=== PATIENT | female | born 1965 | race Caucasian/White ===

== ENCOUNTER → 2018-05-03 | Outpatient (CLI) | payer BC ==
--- NOTE | 2018-05-03 12:12 | MR ---
EXAMINATION TYPE: MR knee RT wo con DATE OF EXAM: 05/03/2018 COMPARISON: None HISTORY: Pain in right knee TECHNIQUE: Multiplanar, multisequence images of the knee is performed without IV contrast. FINDINGS: MEDIAL MENISCUS: Radial tear posterior horn medial meniscus. Anterior horn is intact. LATERAL MENISCUS: Anterior and posterior horns are intact without tear. CRUCIATE LIGAMENTS: The anterior and posterior cruciate ligaments are intact and unremarkable. COLLATERAL LIGAMENTS: The medial collateral ligament and lateral collateral ligament complex are inta ct and unremarkable. EXTENSOR MECHANISM: Visualized quadriceps and patellar tendons are intact. EFFUSION: No significant suprapatellar joint effusion. POPLITEAL CYST: No popliteal/swanson cyst. TRICOMPARTMENT SPACES: Mild narrowing medial tibiofemoral joint space. Moderate narrowing patellofemo ral joint space with cystic changes noted of the patella compatible with chondromalacia patella. BONE MARROW SIGNAL: No focal abnormal marrow signal is appreciated. OTHER: No additional significant abnormality is appreciated. IMPRESSION: 1. Radial tear posterior horn medial meniscus. 2. Changes of osteoarthritis.
== END | disposition home or self-care (01) ==
LOC: RADMRIMAIN 11:09
PROVIDERS: ATTEND Orthopaedic Surgery
DX: S83.241A Other tear of medial meniscus, current injury, right knee, initial encounter (principal); M17.11 Unilateral primary osteoarthritis, right knee

== ENCOUNTER → 2018-05-07 | Outpatient (CLI) | payer BC ==
[2018-05-07 12:35] LABS: Basophils # (A) 0.1 k/uL (0-0.2); Basophils % (A) 1 %; Eosinophils # (A) 0.2 k/uL (0-0.7); Eosinophils % (A) 3 %; HCT 40.2 % (34.0-46.0); HGB 13.5 gm/dL (11.4-16.0); Lymphocytes # (A) 1.3 k/uL (1.0-4.8); Lymphocytes % (A) 20 %; MCH 27.6 pg (25.0-35.0); MCHC 33.5 g/dL (31.0-37.0); MCV 82.5 fL (80.0-100.0); Mean Platelet Volume 7.3; Monocytes # (A) 0.4 k/uL (0-1.0); Monocytes % (A) 6 %; Neutrophils # (A) 4.4 k/uL (1.3-7.7); Neutrophils % (A) 69 %; Platelet Count 370 k/uL (150-450); RBC 4.87 m/uL (3.80-5.40); RDW 13.6 % (11.5-15.5); WBC 6.3 k/uL (3.8-10.6)
[2018-05-07 12:49] LABS: Potassium 4.5 mmol/L (3.5-5.1)
--- NOTE | 2018-05-11 14:27 | HP ---
HISTORY AND PHYSICAL DATE OF SURGERY: 05/12/2018 Frannie Auguste is a 52-year-old patient seen with progressive right knee pain. We discussed treatment options. She elected to proceed with arthroscopy. Consent was obtained. PAST MEDICAL HISTORY: Hypertension. PAST SURGICAL HISTORY: Ear surgery. MEDICATIONS: Altace. ALLERGIES: None reported. SOCIAL HISTORY: Patient denies tobacco use. PHYSICAL EXAMINATION: Evaluation of the right knee, range of motion is -7 to 85. Tenderness medial joint line. Positive medial Traci's. Moderate effusion. Ligaments stable. Hip rotation without pain. Distal neurovascular exam intact. RADIOGRAPHS: Radiographs of the right knee reveal mild osteoarthritis. Right knee MRI revealed a medial meniscal tear. IMPRESSION: Internal derangement, right knee with medial meniscal tear. PLAN: Right knee arthroscopy with partial meniscectomy and debridement. MMODL / IJN: [id number] /
== END | disposition home or self-care (01) ==
LOC: LABPAT 11:41
PROVIDERS: ATTEND Orthopaedic Surgery
DX: Z01.818 Encounter for other preprocedural examination (principal); Z01.812 Encounter for preprocedural laboratory examination; M23.91 Unspecified internal derangement of right knee
CPT/HCPCS: 80051; 85025; 93005

== ENCOUNTER 2018-05-12 10:45 | Day surgery (SDC) | payer BC ==
[~2018-05-12 10:45] MED LIST: ceFAZolin IN SWFI 2 GM/20 ML SYRINGE IVP ONE
[2018-05-12] MEDS ORDERED: DEXAMETHASONE SOD PHOSPHATE 10 MG/ML 1 ML VIAL IV ONE (12:00)
[2018-05-12] MEDS ORDERED: LACTATED RINGERS 1,000 ML IV ONE (12:00)
[2018-05-12] MEDS ORDERED: ONDANSETRON 4 MG/2 ML VIAL IVP ONE (12:00)
[2018-05-12] MEDS ORDERED: MIDAZOLAM 2 MG/2 ML VIAL IVP ONE (12:13)
[2018-05-12] MEDS ORDERED: fentaNYL (PF) 50 MCG/ML 2 ML AMP ONE (12:50)
[2018-05-12] MEDS ORDERED: LIDOCAINE 1% INJ 10MG/ML (20 ML MDV) ONE (12:50)
[2018-05-12] MEDS ORDERED: MIDAZOLAM 2 MG/2 ML VIAL ONE (12:50)
[2018-05-12] MEDS ORDERED: KETOROLAC 30 MG/ML 1 ML VIAL ONE (12:50)
[2018-05-12] MEDS ORDERED: PROPOFOL 10 MG/ML 20 ML VIAL IV ONE (12:50)
[2018-05-12] MEDS ORDERED: BUPIVACAIN-EPI 0.25%-1:200,000 30 ML VIAL SQ ONE (12:50)
--- NOTE | 2018-05-12 13:39 | P.OP ---
Date of Procedure: 05/12/18 Preoperative Diagnosis: Internal drainage right knee Postoperative Diagnosis: 1. Tear medial meniscus right knee 2. Grade 2/3 chondromalacia medial femoral condyle right knee 3. Reactive synovitis medial and suprapatellar compartments right knee Procedure(s) Performed: 1. Arthroscopic partial medial meniscectomy right knee 2. Arthroscopic chondroplasty medial femoral condyle right knee 3. Arthroscopic partial synovectomy medial and suprapatellar compartments right knee Anesthesia: LAURENTA, local Surgeon: Dl Lorenz Estimated Blood Loss (ml): 5 Pathology: none sent Condition: stable Disposition: PACU Indications for Procedure: 52-year-old patient seen with progressive right knee pain. After treatment options discussed, she elected to proceed with arthroscopy. Operative Findings: See description of procedure Description of Procedure: Patient was taken to the operative suite. Patient underwent a general anesthetic by the department of anesthesia. Patient was given preoperative antibiotics. The right lower extremity was placed in a well-padded arthroscopic leg stiles. The right leg was prepped and draped in the normal sterile orthopedic fashion. A lateral parapatellar and suprapatellar incision was made. Trochars were inserted. Arthroscopy was initiated. Suprapatellar pouch revealed diffuse thick reactive synovitis. The patellofemoral joint appeared to articulate congruently. There was grade 1/2 chondromalacia of the patella with no osteochondral tears present. The scope was guided into the medial gutter. No loose bodies or plica were identified. The scope was then guided into the medial compartment. A medial parapatellar incision was made. Trocar inserted followed by probe. There was a complex tear posterior horn medial meniscus. There were grade 2/3 chondromalacia changes of the medial femoral condyle with osteochondral flap tears. There was thick reactive synovitis anteriorly. I performed a partial medial meniscectomy down to stable tissue. I performed a chondroplasty of the medial femoral condyle down to stable tissue. I performed a partial synovectomy decompressing the reactive synovitis. The residual meniscus was stable. The residual osteochondral surface was stable. There was good decompression of the synovitis. Scope and probe were then guided into the intercondylar notch. Cruciates were identified , probed and found to be stable. The scope and probe were then guided into lateral compartment. There was some superficial fraying of the lateral meniscus. No chondromalacia present. I debrided those frayed margins. The scope was in guided back into the suprapatellar compartment. I introduced a motorized shaver into the suprapatellar compartment. I debrided piecemeal fragments of meniscus I encountered. I performed a partial synovectomy decompressing the reactive synovitis. The shaver was removed. I took one more look on the entire knee, no residual debris. Instruments were now removed from the joint. The joint was infiltrated with .25% Marcaine. Steri-Strips were applied to the portal sites. Sterile dressings were applied. The patient was placed into a DIEGO hose. No tourniquet was utilized. The patient was awakened, transferred to a bed and taken to recovery stable satisfactory condition.
[2018-05-12 13:47] VITALS: TEMP 96.9
[2018-05-12] MEDS: HYDROmorphone 1 MG/ML 1 ML SYRINGE IVP ONE ×2 (14:08→14:22)
[2018-05-12 14:57] VITALS: RESP 18
[2018-05-12] MEDS ORDERED: HYDROcodone/APAP 5-325MG 1 EACH TAB PO ONE (15:13)
[2018-05-12 16:59] VITALS: BP 142/70; PULSE 68
== END 2018-05-12 17:00 | disposition home or self-care (01) ==
LOC: OR 10:45
PROVIDERS: ATTEND Orthopaedic Surgery
DX: S83.241A Other tear of medial meniscus, current injury, right knee, initial encounter (principal); X58.XXXA Exposure to other specified factors, initial encounter; M22.41 Chondromalacia patellae, right knee; M65.861 Other synovitis and tenosynovitis, right lower leg; I10 Essential (primary) hypertension; F32.9 Major depressive disorder, single episode, unspecified; Z79.899 Other long term (current) drug therapy
CPT/HCPCS: 81025; 29881; J2250; J1100; J2405; J2001; J3010; J1885; J1170; J2704; J0690

== ENCOUNTER → 2018-08-11 | Outpatient (CLI) | payer MEDICAID ==
[2018-08-11 11:30] LABS: Basophils % (A) 0 %; Eosinophils # (A) 0.2 k/uL (0-0.7); Eosinophils % (A) 2 %; HGB 13.1 gm/dL (11.4-16.0); Lymphocytes # (A) 1.6 k/uL (1.0-4.8); Lymphocytes % (A) 19 %; MCH 27.2 pg (25.0-35.0); MCV 85.1 fL (80.0-100.0); Mean Platelet Volume 7.4; Monocytes # (A) 0.4 k/uL (0-1.0); Monocytes % (A) 4 %; Neutrophils % (A) 73 %; Platelet Count 452 k/uL (150-450); RBC 4.82 m/uL (3.80-5.40); WBC 8.2 k/uL (3.8-10.6)
== END | disposition home or self-care (01) ==
LOC: LABPAT 10:34
PROVIDERS: ATTEND Orthopaedic Surgery
DX: Z01.812 Encounter for preprocedural laboratory examination (principal); M23.92 Unspecified internal derangement of left knee
CPT/HCPCS: 36415; 80051; 85025

== ENCOUNTER 2018-08-19 14:14 | Day surgery (SDC) | payer MEDICAID ==
[2018-08-12 17:43] VITALS: BMI 39.5
--- NOTE | 2018-08-18 19:26 | HP ---
HISTORY AND PHYSICAL DATE OF SURGERY: 08/19/2018 Rosette Auguste is a 53-year-old patient seen with progressive left knee pain. We discussed treatment options. She elected to proceed with arthroscopy. Consent was obtained. PAST MEDICAL HISTORY: Hypertension. PAST SURGICAL HISTORY: Right knee arthroscopy. DAILY MEDICATIONS: Altace. ALLERGIES: NONE. SOCIAL HISTORY: She denies current tobacco use. PHYSICAL EVALUATION OF THE LEFT KNEE: Range of motion is negative 7 to 115 degrees. There is a mild effusion present. Positive tenderness along the medial and lateral joint lines. There is positive medial Traci's. Ligaments are stable. Hip rotation without pain. Distal neurovascular exam is intact. RADIOGRAPHS: Radiographs of the left knee revealed mild osteoarthritic changes. MRI of the left knee revealed osteoarthritic changes and joint effusion. IMPRESSION: 1. Internal derangement, left knee, with osteochondral tear. 2. Hypertension. 3. Left knee osteoarthritis. PLAN: Left knee arthroscopy with chondroplasty and debridement. MMODL / IJN: [id number] /
[~2018-08-19 14:14] MED LIST changes: +DEXAMETHASONE SOD PHOSPHATE 10 MG/ML 1 ML VIAL IV ONE; +HYDROmorphone 0.5 MG/0.5 ML SYRINGE IVP PRN; +LACTATED RINGERS 1,000 ML IV SCH; +LIDOCAINE 1% 20 ML VIAL (10MG/ML) FOR IV START INTRADERMA PRN; +MIDAZOLAM (PF) 2 MG/2 ML VIAL IV PRN; +ONDANSETRON 4 MG/2 ML VIAL IVP ONE; +SCOPOLAMINE 1.5MG/72HR PATCH TRANSDERM ONE
[2018-08-19 15:16] VITALS: RESP 16
[2018-08-19 15:19] LABS: Glucose,Whole Blood 106 mg/dL (75-99)
[2018-08-19] MEDS ORDERED: PROPOFOL 10 MG/ML 20 ML VIAL IV ONE (16:06)
[2018-08-19] MEDS ORDERED: KETOROLAC 30 MG/ML 1 ML VIAL ONE (16:06)
[2018-08-19] MEDS ORDERED: fentaNYL (PF) 50 MCG/ML 2 ML AMP ONE (16:06)
[2018-08-19] MEDS ORDERED: MIDAZOLAM 2 MG/2 ML VIAL ONE (16:06)
[2018-08-19] MEDS ORDERED: HYDROmorphone (PF) 1 MG/ML ONE (16:06)
[2018-08-19] MEDS ORDERED: LIDOCAINE 1% INJ 10MG/ML (20 ML MDV) ONE (16:06)
[2018-08-19] MEDS ORDERED: BUPIVACAIN-EPI 0.5%-1:200,000 30 ML VIAL SQ ONE (16:10)
[2018-08-19 17:09] VITALS: TEMP 97.4
--- NOTE | 2018-08-19 17:09 | P.OP ---
Date of Procedure: 08/19/18 Preoperative Diagnosis: Internal derangement left knee Postoperative Diagnosis: 1. Tear medial meniscus left knee 2. Grade 2 chondromalacia medial femoral condyle left knee 3. Reactive synovitis medial, lateral and suprapatellar compartments left knee Procedure(s) Performed: 1. Arthroscopic partial medial meniscectomy left knee 2. Arthroscopic chondroplasty medial femoral condyle left knee 3. Arthroscopic partial synovectomy medial, lateral and suprapatellar compartments left knee Anesthesia: LAURENTA, local Surgeon: Dl Lorenz Estimated Blood Loss (ml): 7 Pathology: none sent Condition: stable Disposition: PACU Indications for Procedure: 53-year-old patient seen with progressive left knee pain. After treatment options were discussed with her, she elected to proceed with arthroscopy. Operative Findings: See description of procedure Description of Procedure: Patient was taken to the operative suite. Patient underwent a general anesthetic by the department of anesthesia. Patient was given preoperative antibiotics. The left lower extremity was placed in a well-padded arthroscopic leg stiles. The left leg was prepped and draped in the normal sterile orthopedic fashion. A lateral parapatellar and suprapatellar incision was made. Trochars were inserted. Arthroscopy was initiated. Suprapatellar pouch revealed diffuse thick reactive synovitis. The patellofemoral joint appeared to articulate congruently. There was grade 1 chondromalacia changes of the patellofemoral joint with no significant osteochondral tears present. The scope was guided into the medial gutter. Loose bodies or plica were identified . The scope was then guided into the medial compartment. A medial parapatellar incision was made. Trocar inserted followed by probe. There was a complex tear involving the posterior horn of the medial meniscus. There was thick reactive synovitis anteriorly. There was an area of grade 2 chondromalacia weightbearing surface medial femoral condyle with some osteochondral tears present. I performed a partial medial meniscectomy down to stable tissue. I performed a chondroplasty of the medial femoral condyle down to stable tissue. I performed a partial synovectomy decompressing the thick reactive synovitis. The residual meniscus was stable. The residual osteochondral surface was stable. There was good decompression of the synovitis. Scope and probe were then guided into the intercondylar notch. Cruciates were identified, probed and found to be stable. The scope and probe were then guided into lateral compartment. Lateral meniscus was probed and found to be stable. The osteochondral surface appeared stable. There was thick reactive synovitis along the anterior aspect of lateral compartment revealed I introduced a motorized shaver and performed a partial sy novectomy decompressing that synovitis the lateral compartment. There was good decompression of the synovitis. The scope was in guided back into the suprapatellar compartment. I introduced a motorized shaver into the super patellar compartment. I debrided some piecemeal fragments of meniscus I encountered. I performed a partial synovectomy decompressing the thick reactive synovitis. The shaver was removed. I took one more look around the entire knee, no residual debris. Instruments were now removed from the joint. The joint was infiltrated with .25% Marcaine. Steri-Strips were applied to the portal sites. Sterile dressings were applied. The patient was placed into a DIEGO hose. No tourniquet was utilized. The patient was awakened, transferred to a bed and taken to recovery stable satisfactory condition.
[2018-08-19] MEDS ORDERED: LACTATED RINGERS 1,000 ML IV ONE (17:39)
[2018-08-19 18:32] VITALS: BP 154/83; PULSE 88
== END 2018-08-19 18:51 | disposition home or self-care (01) ==
LOC: OR 14:14
PROVIDERS: ATTEND Orthopaedic Surgery
DX: S83.242A Other tear of medial meniscus, current injury, left knee, initial encounter (principal); X58.XXXA Exposure to other specified factors, initial encounter; M22.42 Chondromalacia patellae, left knee; M65.862 Other synovitis and tenosynovitis, left lower leg; M17.12 Unilateral primary osteoarthritis, left knee; I10 Essential (primary) hypertension; Z79.899 Other long term (current) drug therapy
CPT/HCPCS: 81025; 29881; J2250 ×2; J1100; J2405; J2001; J3010; J1885; J1170; J2704; J0690

== ENCOUNTER 2018-12-24 09:55 | Day surgery (SDC) | payer MEDICAID ==
--- NOTE | 2018-12-24 01:45 | HP ---
HISTORY AND PHYSICAL CHIEF COMPLAINT: Occluded left ventilation tube and fluid in the left middle ear space. HISTORY OF PRESENT ILLNESS: The patient is a pleasant 53-year-old female who was seen in my office complaining of having a plugged sensation in the left ear. The patient had recently had a ventilation tube placed in the left ear in September of [address] Lau at the [facility]. Apparently at one point, the tube became plugged and the obstruction was cleared in Dr. Lau's office. However, recently the patient developed drainage from the left ear and she was placed on an antibiotic ear drop. She did not complete the ear drops and subsequently noted that although the drainage has stopped, the ear felt plugged. At the time that she was seen in my office, clinical examination of the ear revealed that the middle aged tube was completely opaque fluid most likely with the debris from the previous infection. Attempts to remove it in the office was not successful and therefore it was recommended to the patient that the left ventilation tube be replaced under IV sedation with MAC. PAST MEDICAL HISTORY: Past medical history reveals the patient has no known allergies to medications. MEDICATIONS: Current medications include ramipril, Celecoxib, Duloxetine, and multivitamins. There is no history of asthma, diabetes mellitus or hypertension. REVIEW OF SYSTEMS: Review of systems is essentially unremarkable except for osteoarthritis in the musculoskeletal system. PREVIOUS SURGERIES: Previous surgeries include bilateral tympanoplasty with mastoidectomy and reconstruction of the ear, arthroscopic/total knee replacement, right knee x2. The patient is 0 and 0 para and 0 miscarriage. PHYSICAL EXAMINATION: This patient is a 53-year-old female who was alert and cooperative. HEENT examination patient is normocephalic. Examination of the right ear reveals right tympanic membrane is unremarkable. Examination of the left ear reveals that the ventilation tube is occluded and the left tympanic membrane appears to be dull suggesting fluid in the left middle ear space. Pupils equal, round, react to light and accommodation. Extraocular movements within normal limits. Intranasal examination reveals moderate to severe septal deviation with compensatory hypertrophy of the inferior turbinates and a moderate amount of clear mucus on the mucous membranes and draining down the posterior pharynx. Examination of the oropharynx, cranial nerves 2 through 12 and palpation of the neck are negative for any neck masses and are within normal limits. Remainder head neck exam is unremarkable chest cardiovascular: Both lung claire are clear to percussion and auscultation. The patient is in regular sinus rhythm S1, S2 are present without evidence of any murmurs S3s or S4. Peripheral pulses are bilaterally symmetrical and within normal limits. Abdomen is no evidence any masses, megaly, or tenderness. ABDOMEN: Soft. Skin is unremarkable. Musculoskeletal and neurological within normal limits. Pelvic rectal examination: Exam is deferred at this time because the patient has this done on a regular basis at her family physician's office. The remainder of physical exam is unremarkable. IMPRESSION: Occluded left ventilation tube/chronic left serous otitis media. PLAN: The patient is scheduled undergo a left myringotomy with replacement of left ventilation tube under IV sedation with MAC in the a.m. Attention RNs in the pre-surgical area: I have ordered for this patient to receive 3 grams of Ancef IV once an intravenous line has been established. If the pharmacy department sends a different pre-surgical prophylactic antibiotic to the pre-surgical area for this patient, that order should be cancelled and the medication should be returned to the pharmacy department. Please make sure that the patient's account is credited appropriately. I have discussed the risks, benefits and alternative therapies for the above-mentioned procedure and for both sedation/analgesia as well as necessary blood product administration, if indicated, as they pertain to this patient. The patient has indicated his or her understanding and acceptance of the risks and procedures discussed. MMODL / IJN: [id number] /
[~2018-12-24 09:55] MED LIST changes: -DEXAMETHASONE SOD PHOSPHATE 10 MG/ML 1 ML VIAL IV ONE; -HYDROmorphone 0.5 MG/0.5 ML SYRINGE IVP PRN; -LACTATED RINGERS 1,000 ML IV SCH; -LIDOCAINE 1% 20 ML VIAL (10MG/ML) FOR IV START INTRADERMA PRN; -MIDAZOLAM (PF) 2 MG/2 ML VIAL IV PRN; -ONDANSETRON 4 MG/2 ML VIAL IVP ONE; +Pre Op ABX Message 1 EACH MISC MISCELLANE ONE; -SCOPOLAMINE 1.5MG/72HR PATCH TRANSDERM ONE; -ceFAZolin IN SWFI 2 GM/20 ML SYRINGE IVP ONE
[2018-12-24 10:38] VITALS: BMI 36.1
[2018-12-24 10:40] VITALS: TEMP 98.4
[2018-12-24] MEDS ORDERED: LACTATED RINGERS 1,000 ML IV ONE (10:50)
[2018-12-24] MEDS ORDERED: LIDOCAINE 1% 20 ML VIAL (10MG/ML) FOR IV START SQ ONE (10:51)
[2018-12-24] MEDS ORDERED: ONDANSETRON 4 MG/2 ML VIAL IVP ONE ×2 (11:02→12:26)
[2018-12-24] MEDS ORDERED: DEXAMETHASONE SOD PHOSPHATE 4 MG/ML 1 ML VIAL IV ONE (11:03)
[2018-12-24] MEDS ORDERED: ceFAZolin 3 GM in SODIUM CHLORIDE 0.9% 100 ML IVPB ONE (11:15)
[2018-12-24] MEDS ORDERED: OFLOXACIN 0.3% OTIC DROPS 5 ML BTL LEFT EAR ONE (11:28)
[2018-12-24] MEDS ORDERED: fentaNYL (PF) 50 MCG/ML 2 ML AMP ONE (11:34)
[2018-12-24] MEDS ORDERED: MIDAZOLAM 2 MG/2 ML VIAL ONE (11:34)
[2018-12-24] MEDS ORDERED: PROPOFOL 10 MG/ML 20 ML VIAL IV ONE (11:34)
[2018-12-24] MEDS ORDERED: EPINEPHrine 1 MG/ML (MDV) 30 ML VIAL IRRIGATION ONE (11:58)
[2018-12-24] MEDS ORDERED: LACTATED RINGERS 1,000 ML IV SCH (12:26)
[2018-12-24] MEDS ORDERED: DEXAMETHASONE SOD PHOSPHATE 10 MG/ML 1 ML VIAL IV ONE (12:26)
[2018-12-24] MEDS ORDERED: HYDROmorphone 0.5 MG/0.5 ML SYRINGE IVP PRN (12:26)
[2018-12-24] MEDS ORDERED: SCOPOLAMINE 1.5MG/72HR PATCH TRANSDERM ONE (12:26)
[2018-12-24] MEDS ORDERED: MIDAZOLAM 2 MG/2 ML VIAL IV PRN (12:26)
[2018-12-24 13:00] VITALS: BP 150/80; PULSE 66; RESP 20
--- NOTE | 2018-12-25 22:32 | OP ---
OPERATIVE REPORT DATE OF SURGERY: 12/24/2018 PREOPERATIVE DIAGNOSIS: Occluded left ventilation tube and left chronic serous otitis media. ANESTHESIA: IV sedation with MAC. OPERATIVE PROCEDURE: Left myringotomy with insertion of an Activent ventilation. OPERATING SURGEON: Dr. Henderson. COMPLICATIONS: None. OPERATIVE PROCEDURE: The patient was placed on operating table in supine position and after uneventful IV sedation, satisfactory sedation was obtained. Next, the patient's left ear was draped in usual customary fashion. Next, using the Zeiss operating microscope and a #3 aural speculum, the left external auditory canal was cleansed of all wax and debris. Immediate inspection revealed that the patient had occluded previously inserted ventilation tube. In addition to this she had a significant anterior wall bulge. There was significant thickening and scarring of the left tympanic membrane. Therefore, using the myringotomy knife and a pair of alligator forceps, the old myringotomy tube was eventually worked out of the tympanic membrane in an atraumatic fashion. This old tube was occluded and subsequently was discarded. The residual perforation was slightly enlarged with a myringotomy knife to make an extension excision into the anterior inferior quadrant left tympanic membrane. Fluid was present and was suctioned from the left middle ear space. Next, an Activent Jalen bobbin style ventilation tube was inserted into the previously made myringotomy incision. Again, it is noted that the tympanic membrane was quite thickened and there was some significant scar tissue. However, I was, able to make the incision in an area where there was less scar tissue and there also was a space behind the tympanic membrane. At this point, the procedure was terminated. There were no intraoperative complications. The patient tolerated procedure well and was returned to the recovery room in satisfactory condition. MMODL / IJN: [id number] /
== END 2018-12-24 13:08 | disposition home or self-care (01) ==
LOC: OR 09:55
PROVIDERS: ATTEND Otolaryngology
DX: H65.22 Chronic serous otitis media, left ear (principal); I10 Essential (primary) hypertension; M19.90 Unspecified osteoarthritis, unspecified site; J34.2 Deviated nasal septum; J34.3 Hypertrophy of nasal turbinates; Z79.899 Other long term (current) drug therapy; Z96.651 Presence of right artificial knee joint
CPT/HCPCS: 69436; 81025; J0171; J2250; J1100; J2405; J3010; J2704

== ENCOUNTER → 2019-01-24 | Outpatient (CLI) | payer MEDICAID | END | disposition home or self-care (01) | LOC: RADMRIMAIN 19:10 | PROVIDERS: ATTEND Otolaryngology | DX: Z53.9 Procedure and treatment not carried out, unspecified reason (principal) ==

== ENCOUNTER → 2019-03-21 | Outpatient (CLI) | payer MEDICAID ==
--- NOTE | 2019-03-22 04:15 | CT ---
EXAMINATION TYPE: CT iac wo/w con DATE OF EXAM: 03/21/2019 COMPARISON: 09/08/2014 HISTORY: 53-year-old female hearing loss and drainage to left ear. Unspecified cholesteatoma. CT DLP: 324 mGycm Automated exposure control for dose reduction was used. TECHNIQUE: Contiguous high-resolution axial scanning of the temporal bones performed without and wit h IV Contrast, patient injected with 100 mL of Isovue 300. Coronal reformatted images obtained. FINDINGS: There is no abnormality of visualized intracranial structures. The left myringotomy tube appears to be displaced along the floor of the deep left external auditory canal. In addition, there is a 3 to 4 mm linear density seen projecting from the superior aspect of the righ t tympanic membrane into the deep portion of the right external auditory canal, refer to coronal imag e 86 and axial image 19. This seems to have been present on the 2014 exam as well. Myringotomy tube is also present on the right. Otherwise, the external auditory canals appear clear. The left middle ear cavity shows significant improved aeration as compared to 2015 with minimal resid ual opacification along the epitympanum slightly thickening the superior half of the tympanic membran e. A couple fine linear densities are present on the left as well, one projecting from the tympanic memb cali and just superior and posterior to the expected region of the oval window, refer to axial images 18 and 19. Some fine curvilinear material is seen projecting to the region of the oval window, coron al image 91. Second linear density is present along the anterior and superior portion of the tympanic membrane, coronal image 88. There are prior resection changes into the bilateral mastoid processes. The right mastoid process rem ains pneumatized. There is opacification of the left resection cavity. There is resection or prior erosion of the left middle ear ossicles. Right middle ear ossicles are vi sualized. There is no abnormality of bony labyrinths. The vestibular and cochlear aqueducts are well visualized. The facial nerve canal is normal bilaterally. The internal auditory canal and meati are symmetrical bilaterally. There is no evidence of fractures. Chronic long-standing opacification of the right sphenoid sinus with progressive reactive new osteoge nesis is compared to 09/08/2014. Mild reactive osteitis is also seen involving the maxillary sinus wal ls. There are Tracer fluid levels and mild mucosal thickening here. Scattered mild mucosal thickening ethmoid air cells and left sphenoid sinus. Reformatted images confirm above findings. IMPRESSION: 1. Prior resection changes into the bilateral mastoid air cells with opacification of the left resect ion cavity. 2. Displacement of the left myringotomy tube which is located along the floor of the deep left construction area manager al auditory canal. However, there has been interval clearance of the left middle ear cavity with mini mal residual opacification along the epitympanum thickening the superior aspect of the tympanic membr ane. 3. Right myringotomy tube in place. There is a 3 to 4 mm linear density which seems to traverse the r ight tympanic membrane and extends into the deep portion of the right external auditory canal. This w as present in 2015. Clinically correlate. 4. Prior resection or erosion of the left ossicular chain. 2 fine linear densities are present in the left middle ear cavity, one along the anterior superior aspect of the tympanic membrane and a second linear density projecting from the tympanic membrane just posterior and superior to the expected reg ion of the oval window. Some fine curvilinear density is present in the region of the oval window. Co rrelate with surgical technique for potential ossicular chain reconstruction and appropriate position ing. 5. Long-standing chronic paranasal sinus disease, severe in the right sphenoid sinus. Small air-fluid levels in the bilateral maxillary sinuses may reflect an acute sinusitis.
== END | disposition home or self-care (01) ==
LOC: RADCTMAIN 15:12
PROVIDERS: ATTEND Otolaryngology
DX: H70.93 Unspecified mastoiditis, bilateral (principal); H93.8X2 Other specified disorders of left ear; H71.90 Unspecified cholesteatoma, unspecified ear; H93.19 Tinnitus, unspecified ear
CPT/HCPCS: 70482; Q9967

== ENCOUNTER → 2019-06-10 | Day surgery (SDC) | payer MEDICAID ==
[~2019-06-10] MED LIST changes: +DEXAMETHASONE SOD PHOSPHATE 10 MG/ML 1 ML VIAL IV ONE; +HYDROmorphone 0.5 MG/0.5 ML SYRINGE IVP PRN; +LACTATED RINGERS 1,000 ML IV SCH; +LIDOCAINE 1% 20 ML VIAL (10MG/ML) FOR IV START INTRADERMA PRN; +LIDOCAINE 1% INJ 10MG/ML (20 ML MDV) ONE; +MIDAZOLAM 2 MG/2 ML VIAL IV ONE; +MIDAZOLAM 2 MG/2 ML VIAL ONE; +OFLOXACIN 0.3% OPHTH DROPS 5 ML BOTTLE LEFT EAR ONE; +ONDANSETRON 4 MG/2 ML VIAL IVP ONE; +PROPOFOL 10 MG/ML 20 ML VIAL IV ONE; +fentaNYL (PF) 50 MCG/ML 2 ML AMP ONE
--- NOTE | 2019-06-10 05:33 | HP ---
HISTORY AND PHYSICAL CHIEF COMPLAINT: Fluid in the left ear. HISTORY OF PRESENT ILLNESS: This patient is a pleasant 53-year-old female who was recently seen in my office complaining of a plugged sensation in the left ear. She had previously undergone a left myringotomy with insertion of ventilation tube in December of 2018. At the time that she was seen in the office, clinical examination revealed that the left tube had extruded and there was once again fluid in the left middle ear space. It was therefore recommend the patient undergo a repeat left myringotomy with insertion of a ventilation tube under either general anesthesia or IV sedation with MAC. PAST MEDICAL HISTORY: Past medical history reveals she has no known allergies to medications. Current medications include: 1. Celebrex. 2. Ramipril. 3. Duloxetine. 4. Multivitamins. There is no history of asthma or diabetes mellitus or hypertension. REVIEW OF SYSTEMS: The review of systems is essentially unremarkable except for the musculoskeletal system which is positive for osteoarthritis. PREVIOUS SURGERIES: Previous surgeries include a left myringotomy with insertion of ventilation tube, bilateral tympanoplasties with mastoidectomy and reconstruction of the ears, arthroscopic/total knee replacement right knee x2. The patient is 0 , 0 para and 0 miscarriage. PHYSICAL EXAMINATION: The patient is a very pleasant 53-year-old female who is alert and cooperative HEENT EXAMINATION: Patient is normocephalic. Examination of the right ear is unremarkable. Examination of the left ear reveals fluid in the left middle ear space and an extruded left ventilation tube. Pupils are equal, round, react to light and accommodation. Extraocular movements within normal limits. Intranasal examination reveals moderate to severe septal deviation with compensatory hypertrophy of the inferior turbinates and moderate amount of mucus on the mucous membranes and draining down the posterior pharynx. Examination of the oropharynx, cranial nerves 2 through 12 and remainder of the head and neck exam are within normal limits. CHEST/CARDIOVASCULAR: Both lung claire are clear to percussion and auscultation. The patient is in regular sinus rhythm. S1, S2 are present without evidence of any murmurs, S3s or S4s. Peripheral pulses are bilaterally symmetrical and within normal limits. ABDOMEN: There is no evidence any masses megaly or tenderness. Abdomen is soft. SKIN: Is unremarkable. MUSCULOSKELETAL AND NEUROLOGICAL: Are unremarkable. PELVIC RECTAL EXAM: The pelvic rectal exam is deferred at this time because the patient has this done on a regular basis at her family physician's office. The remainder of the physical exam is essentially unremarkable. IMPRESSION: Chronic left serous otitis media. PLAN: The patient is scheduled undergo a left myringotomy with insertion of a Natalie type of ventilation tube under either IV sedation with MAC or general anesthesia, depending upon the anesthesia department's preference in the a.m. ATTENTION RNS IN THE PRE-SURGICAL AREA: I have not ordered any pre-surgical prophylactic antibiotics for this patient. If the pharmacy department sends any pre- surgical prophylactic antibiotics to the pre-surgical area for this patient, that order should be canceled and the medication should be returned to the pharmacy department. Also, please make sure that the patient's account is credited appropriately. I have discussed the risks, benefits and alternative therapies for the above-mentioned procedure and for both sedation/analgesia as well as necessary blood product administration, if indicated, as they pertain to this patient. The patient has indicated his or her understanding and acceptance of the risks and procedures discussed. MMMANUELAL / IJN: [id number] /
[2019-06-10 12:32] VITALS: RESP 16; TEMP 98
[2019-06-10 13:32] VITALS: BP 130/77; PULSE 77
--- NOTE | 2019-06-12 11:22 | OP ---
OPERATIVE REPORT DATE OF SURGERY: 06/10/2019. PREOPERATIVE DIAGNOSIS: Chronic left serous otitis media. POSTOPERATIVE DIAGNOSIS: Chronic left serous otitis media. ANESTHESIA: General anesthesia. OPERATIVE PROCEDURE: Left myringotomy with insertion of a Natalie type T tube ventilation tube. OPERATING SURGEON: Dr. Henderson. COMPLICATIONS: None. DESCRIPTION OF PROCEDURE: The patient is placed on the operating table in supine position and after uneventful induction and intubation, satisfactory general anesthesia was obtained. Next using the Zeiss operating microscope and a #3 aural speculum, the left external auditory canal was cleansed of all wax and debris. Following this, the myringotomy knife was used to make an incision in the anterior inferior quadrant of the left tympanic membrane. The middle ear space was suctioned free of all fluid and a Natalie type T tube was inserted through the previously made myringotomy incision without difficulty. At this point, the procedure was terminated. There were no intraoperative complications. Patient tolerated the procedure well and was returned to recovery room in satisfactory condition. MMODL / IJN: [id number] /
== END ==
LOC: OR 08:31
PROVIDERS: ATTEND Otolaryngology
DX: H65.22 Chronic serous otitis media, left ear (principal); I10 Essential (primary) hypertension; M19.90 Unspecified osteoarthritis, unspecified site; Z79.899 Other long term (current) drug therapy; Z79.1 Long term (current) use of non-steroidal anti-inflammatories (NSAID)
CPT/HCPCS: 69436; J2250; J1100; J2405; J2001; J3010; J2704

== ENCOUNTER 2019-07-13 09:04 | Emergency (ER) | payer MEDICAID, OTHER ==
[2019-07-13 09:10] VITALS: BP 169/91; PULSE 91; RESP 18; TEMP 98.1
--- NOTE | 2019-07-13 09:18 | ED ---
General Adult HPI - General Chief complaint: Recheck/Abnormal Lab/Rx Stated complaint: IHS-Needle stick Time Seen by Provider: 07/13/19 09:11 Source: patient, RN notes reviewed Mode of arrival: ambulatory Limitations: no limitations - History of Present Illness Initial comments: 54-year-old female presents emergency Department chief complaint needlestick to her right palmar aspect. 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 She went to pick it up and there was a small sharp object a poked her hand. They're not exactly sure what it was. Patient states that her tetanus is up-to-date. Patient is here for routine blood tests living to be in hepatitis. Patient offers no complaints. - Related Data Home Medications Medication Instructions Recorded Confirmed Celecoxib [CeleBREX] 200 mg PO DAILY 05/12/18 06/09/19 DULoxetine HCL [Cymbalta] 30 mg PO DAILY 05/12/18 06/09/19 Multivitamin [Multivitamins Adult 1 tab PO DAILY 05/12/18 06/09/19 Gummies] Ramipril 10 mg PO BID 05/12/18 06/09/19 Allergies Allergy/AdvReac Type Severity Reaction Status Date / Time No Known Allergies Allergy Verified 07/13/19 09:09 Review of Systems ROS Statement: Those systems with pertinent positive or pertinent negative responses have been documented in the HPI. ROS Other: All systems not noted in ROS Statement are negative. Past Medical History Past Medical History: Osteoarthritis (OA) Additional Past Medical History / Comment(s): TUBE FELL OUT OF LEFT EAR. History of Any Multi-Drug Resistant Organisms: None Reported Past Surgical History: Orthopedic Surgery Additional Past Surgical History / Comment(s): LEFT MYRINGOTOMY. RIGHT AND LEFT KNEE ARTHROSCOPY Past Anesthesia/Blood Transfusion Reactions: No Reported Reaction Past Psychological History: No Psychological Hx Reported Smoking Status: Never smoker Past Alcohol Use History: None Reported Past Drug Use History: None Reported General Exam Limitations: no limitations General appearance: alert, in no apparent distress Head exam: Present: atraumatic, normocephalic, normal inspection Respiratory exam: Present: normal lung sounds bilaterally. Absent: respiratory distress, wheezes, rales, rhonchi, stridor Cardiovascular Exam: Present: regular rate, normal rhythm, normal heart sounds. Absent: systolic murmur, diastolic murmur, rubs, gallop, clicks Extremities exam: Present: other (Small puncture wound noted the right pulmonary aspect no active bleeding) Course Vital Signs 07/13/19 09:08 Temperature 98.1 F Pulse Rate 91 Respiratory 18 Rate Blood Pressure 169/91 O2 Sat by Pulse 97 Oximetry Medical Decision Making - Medical Decision Making Patient had small puncture wound by unknown object. Not clearly sure if this was blood exposure. Patient offered HIV prophylaxis she declines at this time will have repeat rapid HIV testing. Patient will have recheck palpation return for worsening symptoms. Disposition Clinical Impression: Needlestick injury accident Disposition: HOME SELF-CARE Condition: Stable Instructions (If sedation given, give patient instructions): Needle Stick Injuries (ED) Additional Instructions: Please return to the Emergency Department if symptoms worsen or any other concerns. Is patient prescribed a controlled substance at d/c from ED?: No Referrals: Brittany Mulligan DO [Primary Care Provider] - 1-2 days Time of Disposition: 09:17
== END 2019-07-13 09:40 | disposition home or self-care (01) ==
LOC: EC 09:04
DX: S61.431A Puncture wound without foreign body of right hand, initial encounter (principal); W46.0XXA Contact with hypodermic needle, initial encounter; Y93.E5 Activity, floor mopping and cleaning; Y92.009 Unspecified place in unspecified non-institutional (private) residence as the place of occurrence of the external cause; Y99.0 Civilian activity done for income or pay
CPT/HCPCS: 99282

== ENCOUNTER → 2019-07-21 | Outpatient (CLI) | payer MEDICAID ==
--- NOTE | 2019-07-25 09:07 | MM ---
Reason for exam: screening (asymptomatic). Last mammogram was performed 7 years and 3 months ago. History: Patient is postmenopausal and is nulliparous. Physical Findings: A clinical breast exam by your physician is recommended on an annual basis and results should be correlated with mammographic findings. MG 3D Screening Mammo W/Cad Bilateral CC and MLO view(s) were taken. Prior study comparison: April 26, 2012, bilateral digital screening mammo w/CAD. Focal asymmetry right lower inner quadrant, stable. No significant changes when compared with prior studies. ASSESSMENT: Benign, BI-RAD 2 RECOMMENDATION: Routine screening mammogram of both breasts in 1 year.
== END | disposition home or self-care (01) ==
LOC: RADMAMWWP 15:21
PROVIDERS: ATTEND Family Medicine
DX: Z12.31 Encounter for screening mammogram for malignant neoplasm of breast (principal)
CPT/HCPCS: 77063; 77067

== ENCOUNTER → 2019-07-22 | Outpatient (CLI) | payer MEDICAID ==
--- NOTE | 2019-07-22 23:35 | MR ---
EXAMINATION TYPE: MR knee LT wo con DATE OF EXAM: 07/22/2019 COMPARISON: HISTORY: Lt knee pain, injury May 2019 Multiplanar multiecho imaging of the left knee was performed without contrast. There is moderate size knee joint effusion. The collateral ligaments are intact. The anterior and pos terior cruciate ligaments are intact. Lateral meniscus is intact. There is complex horizontal and pranay tical tear in the posterior horn medial meniscus. There is slight narrowing of the medial joint space. There is no evidence of a fracture. I see no bon y destructive process. There is mild spurring of the medial femoral and tibial condyles. The patella is intact. There is minor spurring on the patella. There are tiny degenerative cysts in t he subchondral patella. IMPRESSION: Mild osteoarthritis medial joint space. No fracture seen. Knee joint effusion with complex tear of the posterior horn medial meniscus. No ligamentous tear.
== END | disposition home or self-care (01) ==
LOC: RADMRIMAIN 16:14
PROVIDERS: ATTEND Orthopaedic Surgery
DX: M17.12 Unilateral primary osteoarthritis, left knee (principal); S83.232A Complex tear of medial meniscus, current injury, left knee, initial encounter

== ENCOUNTER → 2019-07-28 | Outpatient (CLI) | payer MEDICAID | END | disposition home or self-care (01) | CPT/HCPCS: 36415; 80051; 85025; 93005 ==

== ENCOUNTER 2019-08-04 08:23 | Day surgery (SDC) | payer MEDICAID ==
[2019-08-02 12:34] VITALS: BMI 36.0
--- NOTE | 2019-08-03 20:23 | HP ---
HISTORY AND PHYSICAL DATE OF SURGERY: 08/04/2019 Rosette Auguste is a 54-year-old patient seen with progressive left knee pain. We discussed options regarding treatment. She elected to proceed with arthroscopy. Consent was obtained. PAST MEDICAL HISTORY: Hypertension. PAST SURGICAL HISTORY: Bilateral knee arthroscopy, ear surgery. DAILY MEDICATIONS: Altace, tramadol. ALLERGIES: NONE. SOCIAL HISTORY: She denies tobacco use. PHYSICAL EVALUATION OF THE LEFT KNEE: Range of motion is negative 20 to 90. There is a mild to moderate effusion. Tenderness along the medial and lateral joint lines. Positive medial Traci's. Ligaments stable. Hip rotation without pain. Distal neurovascular exam is intact. RADIOGRAPHS: X-rays of the left knee revealed osteoarthritic changes. MRI of the left knee revealed a medial meniscal tear. IMPRESSION: 1. Internal derangement of the left knee with medial meniscal tear. 2. Left knee osteoarthritis. 3. Hypertension. PLAN: Left knee arthroscopy with partial meniscectomy, partial synovectomy and debridement. MMODL / IJN: [id number] /
[~2019-08-04 08:23] MED LIST changes: +KETOROLAC 30 MG/ML 1 ML VIAL IVP SCH; +LIDOCAINE 1% (10MG/ML) FOR IV START INTRADERMA PRN; -LIDOCAINE 1% 20 ML VIAL (10MG/ML) FOR IV START INTRADERMA PRN; -LIDOCAINE 1% INJ 10MG/ML (20 ML MDV) ONE; +METOCLOPRAMIDE 5 MG/ML 2 ML VIAL IVP PRN; -MIDAZOLAM 2 MG/2 ML VIAL IV ONE; +MIDAZOLAM 2 MG/2 ML VIAL IV PRN; -MIDAZOLAM 2 MG/2 ML VIAL ONE; -OFLOXACIN 0.3% OPHTH DROPS 5 ML BOTTLE LEFT EAR ONE; -PROPOFOL 10 MG/ML 20 ML VIAL IV ONE; -Pre Op ABX Message 1 EACH MISC MISCELLANE ONE; -fentaNYL (PF) 50 MCG/ML 2 ML AMP ONE
[2019-08-04 08:45] VITALS: TEMP 97.4
[2019-08-04] MEDS ORDERED: LIDOCAINE 1% INJ 10MG/ML (20 ML MDV) ONE (09:31)
[2019-08-04] MEDS ORDERED: PROPOFOL 10 MG/ML 20 ML VIAL IV ONE (09:31)
[2019-08-04] MEDS ORDERED: SUCCINYLCHOLINE CHLORIDE 100 MG/5 ML SYR IV ONE (09:31)
[2019-08-04] MEDS ORDERED: fentaNYL (PF) 50 MCG/ML 2 ML AMP ONE (09:31)
[2019-08-04] MEDS ORDERED: BUPIVACAIN-EPI 0.25%-1:200,000 30 ML VIAL INTRAARTIC ONE (09:34)
--- NOTE | 2019-08-04 10:34 | P.OP ---
Date of Procedure: 08/04/19 Preoperative Diagnosis: Internal derangement left knee Postoperative Diagnosis: 1. Tear medial meniscus left knee 2. Grade 3 chondromalacia medial femoral condyle left knee 3. Grade 3 chondromalacia patella left knee 4. Reactive synovitis medial, lateral and suprapatellar compartments left knee Procedure(s) Performed: 1. Arthroscopic partial medial meniscectomy left knee 2. Arthroscopic chondroplasty medial femoral condyle left knee 3. Arthroscopic chondroplasty patella left knee 4. Arthroscopic partial synovectomy medial, lateral and suprapatellar compartments left knee Anesthesia: LAURENTA, local Surgeon: Dl Lorenz Estimated Blood Loss (ml): 7 Pathology: none sent Condition: stable Disposition: PACU Indications for Procedure: 54-year-old patient seen with progressive left knee pain. After treatment options were discussed, she elected to proceed with arthroscopy. Operative Findings: See description of procedure Description of Procedure: Patient was taken to the operative suite. Patient underwent a general anesthetic by the department of anesthesia. Patient was given preoperative antibiotics. The left lower extremity was placed in a well-padded arthroscopic leg stiles. The left leg was prepped and draped in the normal sterile orthopedic fashion. A lateral parapatellar and suprapatellar incision was made. Trochars were inserted. Arthroscopy was initiated. Suprapatellar pouch revealed diffuse thick reactive synovitis. The patellofemoral joint appeared articulate congruently. There as grade 3 chondromalacia of the patella with diffuse osteochondral tears present. The scope was guided into the medial gutter. No loose bodies or plica were identified. The scope was then guided into the medial compartment. A medial parapatellar incision was made. Trocar inserted followed by probe. There was a radial tear posterior horn medial meniscus. There were grade 3+ chondromalacia changes along the weightbearing surface medial femoral condyle with osteochondral tears present. There was thick reactive synovitis anteriorly. I performed a partial medial meniscectomy. I performed a chondroplasty of the medial femoral condyle. I performed a partial synovectomy. The residual meniscus was stable. The residual osteochondral surface was stable. There were grade 3/4 chondromalacia changes noted at this point. There were was good decompression of the reactive synovitis anteriorly. Scope and probe were then guided into the intercondylar notch. There was some scar tissue along the anterior intercondylar notch area I introduced a motorized shaver and debrided that out. The ACL was probed and found to be stable. The scope and probe were then guided into lateral compartment. There were grade 1 chondromalacia changes lateral compartment with no osteochondral tears present. Lateral meniscus was stable. There was thick reactive synovitis anteriorly. I introduced a motorized shaver and performed a partial synovectomy. The shaver was removed. There was good decompression of synovitis. The scope was in guided back into the suprapatellar compartment. I introduced a motorized shaver into the suprapatellar compartment. I debrided some piecemeal fragments of meniscus I encountered. I performed a chondroplasty of the patella. I performed a partial synovectomy decompressing the reactive synovitis. The shaver was removed. I took one more look on the entire knee, no residual debris. Instruments were now removed from the joint. The joint was infiltrated with .25% Marcaine. Steri-Strips were applied to the portal sites. Sterile dressings were applied. The patient was placed into a DIEGO hose. No tourniquet was utilized. The patient was awakened, transferred to a bed and taken to recovery stable satisfactory condition.
[2019-08-04 11:37] VITALS: RESP 20
[2019-08-04 12:31] VITALS: BP 110/76; PULSE 72
== END 2019-08-04 12:32 | disposition home or self-care (01) ==
LOC: OR 08:23
PROVIDERS: ATTEND Orthopaedic Surgery
DX: S83.242A Other tear of medial meniscus, current injury, left knee, initial encounter (principal); X58.XXXA Exposure to other specified factors, initial encounter; M22.42 Chondromalacia patellae, left knee; M65.862 Other synovitis and tenosynovitis, left lower leg; M17.12 Unilateral primary osteoarthritis, left knee; I10 Essential (primary) hypertension; Z79.1 Long term (current) use of non-steroidal anti-inflammatories (NSAID); Z79.891 Long term (current) use of opiate analgesic; Z79.899 Other long term (current) drug therapy
CPT/HCPCS: 84132; 29881; 29876; J1100; J0690; J2405; J2001; J3010; J1885; J0330; J2704; J1170

== ENCOUNTER → 2019-12-27 | Outpatient (CLI) | payer MEDICAID ==
--- NOTE | 2019-12-27 07:53 | CT ---
EXAMINATION TYPE: CT sinus wo con DATE OF EXAM: 12/27/2019 COMPARISON: CT IAC March 21, 2019. HISTORY: Sinusitis per order. CT DLP: 612.00 mGycm. Automated Exposure Control for Dose Reduction was Utilized. TECHNIQUE: CT scan of the sinuses is performed without contrast, axial images are obtained, coronal r eformatted images are also reviewed. FINDINGS: Mild mucosal thickening with dependent fluid in the bilateral maxillary sinuses is now iden tified. This is worse from [address] Completely opacified right sphenoid sinus, suspect advanced mucosal thickening and minimal patchy flu id. There is sclerosis and thickening of the surrounding right sphenoid sinus bony wall , sinus findi ngs slightly improved from prior CT. Mild to moderate posterior mucosal thickening in the left spheno id sinus slightly more prominent from prior CT. Ethmoid and frontal sinuses show no suspicious opacification or air-fluid levels. The surgically treated ostiomeatal complex is patent bilaterally coronal image 20 for reference. Visualized portion of mastoid air cells show no abnormal opacification. The globes are intact bilate rally. Visualized portion of brain parenchyma is unremarkable. IMPRESSION: Acute on chronic bilateral maxillary and sphenoid sinus disease as detailed above. Surgi ondina treated ostiomeatal complexes remain patent.
== END | disposition home or self-care (01) ==
LOC: RADCTMAIN 06:55
PROVIDERS: ATTEND Otolaryngology Otology & Neurotology
DX: J32.9 Chronic sinusitis, unspecified (principal); Z98.890 Other specified postprocedural states
CPT/HCPCS: 70486

== ENCOUNTER → 2019-12-27 | Outpatient (CLI) | payer MEDICAID ==
[2019-12-27 08:56] LABS: HCT 40.5 % (34.0-46.0); HGB 13.1 gm/dL (11.4-16.0); MCHC 32.3 g/dL (31.0-37.0); MCV 83.7 fL (80.0-100.0); Mean Platelet Volume 8.1; Platelet Count 363 k/uL (150-450); RBC 4.84 m/uL (3.80-5.40); RDW 13.3 % (11.5-15.5); WBC 4.9 k/uL (3.8-10.6)
[2019-12-27 17:09] LABS: African American GFR (CKD) 96.9 (60.0-200.0); Albumin 4.4 g/dL (3.80-4.90); Albumin/Globulin Ratio 1.83 (1.60-3.17); Anion Gap 5.6 mmol/L (4.00-12.00); Calcium 10.1 mg/dL (8.7-10.3); Carbon Dioxide 29.4 mmol/L (21.6-31.8); Chol/HDL Ratio 4.22; Globulin 2.4 g/dL (1.6-3.3); LDL Cholesterol,Calculated 135.8 mg/dL (0.0-131.0); Non-African American GFR(CKD) 83.6 (60.0-200.0); Potassium 5.6 mmol/L (3.5-5.5); Total Bilirubin 0.5 mg/dL (0.2-1.2); Total Protein 6.8 g/dL (6.2-8.2); VLDL Calculation 28.2 mg/dL (5.00-40.00)
== END | disposition home or self-care (01) ==
LOC: LABWHC1 07:19
PROVIDERS: ATTEND Family Medicine
DX: E55.9 Vitamin D deficiency, unspecified (principal); R53.83 Other fatigue
CPT/HCPCS: 36415; 80053; 80061; 82306; 82550; 84443; 85027

== ENCOUNTER → 2020-10-03 | Outpatient (CLI) | payer MEDICAID ==
[2020-10-03 14:19] LABS: HCT 40.4 % (37.2-46.3); HGB 13.1 g/dL (12.0-15.0); MCH 27.5 pg (27.0-32.0); MCHC 32.4 g/dL (32.0-37.0); MCV 84.9 fL (80.0-97.0); Mean Platelet Volume 11.2 fL (9.5-12.2); Platelet Count 375 X 10*3/uL (140-440); RBC 4.76 X 10*6/uL (4.10-5.20); RDW 13.3 % (11.5-14.5); WBC 5.42 X 10*3/uL (4.50-10.00)
[2020-10-03 15:14] LABS: African American GFR (CKD) 96.2 (60.0-200.0); Albumin 4.5 g/dL (3.80-4.90); Albumin/Globulin Ratio 1.96 (1.60-3.17); Anion Gap 5.4 mmol/L (4.00-12.00); BUN/Creat Ratio 26.25 Ratio (12.00-20.00); Calcium 9.7 mg/dL (8.7-10.3); Carbon Dioxide 28.6 mmol/L (21.6-31.8); Chol/HDL Ratio 3.29; Globulin 2.3 g/dL (1.6-3.3); Potassium 5.1 mmol/L (3.5-5.5); Total Bilirubin 0.6 mg/dL (0.2-1.2); Total Protein 6.8 g/dL (6.2-8.2)
== END | disposition home or self-care (01) ==
LOC: LABWHC1 08:12
PROVIDERS: ATTEND Physician Assistant Medical
DX: I10 Essential (primary) hypertension (principal); E78.5 Hyperlipidemia, unspecified; Z79.899 Other long term (current) drug therapy
CPT/HCPCS: 36415; 80053; 80061; 84443; 85027

== ENCOUNTER → 2021-07-17 | Outpatient (CLI) | payer MEDICAID ==
[2021-07-17 14:46] LABS: HCT 40.3 % (37.2-46.3); HGB 12.8 g/dL (12.0-15.0); MCH 27.1 pg (27.0-32.0); MCHC 31.8 g/dL (32.0-37.0); MCV 85.4 fL (80.0-97.0); Mean Platelet Volume 11.1 fL (9.5-12.2); NRBC Per 100 WBC 0 /100 WBCS (0.0-0.0); Platelet Count 342 X 10*3/uL (140-440); RBC 4.72 X 10*6/uL (4.10-5.20); RDW 13.1 % (11.5-14.5); WBC 3.83 X 10*3/uL (4.50-10.00)
[2021-07-17 15:11] LABS: ALT 54 U/L (8-44); AST 27 U/L (13-35); African American GFR (CKD) 114.4 (60.0-200.0); Albumin 4.5 g/dL (3.8-4.9); Albumin/Globulin Ratio 2.02 (1.60-3.17); Alkaline Phosphatase 144 U/L (41-126); BUN/Creat Ratio 33.28 Ratio (12.00-20.00); Carbon Dioxide 25.1 mmol/L (20.0-27.5); Chloride 104 mmol/L (96-109); Chol/HDL Ratio 4.43 Ratio; Globulin 2.2 g/dL (1.6-3.3); Glucose 103 mg/dL (70-110); LDL Cholesterol,Calculated 136.2 mg/dL (0.0-131.0); Non-African American GFR(CKD) 98.7 (60.0-200.0); Potassium 5.1 mmol/L (3.5-5.5); Sodium 141 mmol/L (135-145); Total Protein 6.7 g/dL (6.2-8.2)
== END | disposition home or self-care (01) ==
LOC: LABWHC1 08:51
PROVIDERS: ATTEND Physician Assistant Medical
DX: I10 Essential (primary) hypertension (principal); E66.9 Obesity, unspecified; Z79.899 Other long term (current) drug therapy; E78.5 Hyperlipidemia, unspecified
CPT/HCPCS: 36415; 80053; 80061; 84443; 85027

== ENCOUNTER → 2021-08-08 | Outpatient (CLI) | payer MEDICAID ==
--- NOTE | 2021-08-09 12:28 | MM ---
Reason for exam: screening (asymptomatic). Last mammogram was performed 2 years and 1 month ago. History: Patient is postmenopausal and is nulliparous. Physical Findings: A clinical breast exam by your physician is recommended on an annual basis and results should be correlated with mammographic findings. MG 3D Screening Mammo W/Cad Bilateral CC and MLO view(s) were taken. Prior study comparison: July 21, 2019, bilateral MG 3d screening mammo w/cad. There are scattered fibroglandular densities. There is chronic nodularity bilaterally. There is no discrete abnormality. ASSESSMENT: Benign, BI-RAD 2 RECOMMENDATION: Routine screening mammogram of both breasts in 1 year.
== END | disposition home or self-care (01) ==
LOC: RADMAMWWP 07:55
PROVIDERS: ATTEND Family Medicine
DX: Z12.31 Encounter for screening mammogram for malignant neoplasm of breast (principal); Z78.0 Asymptomatic menopausal state
CPT/HCPCS: 77063; 77067

== ENCOUNTER → 2021-12-24 | Outpatient (CLI) | payer MEDICAID ==
[2021-12-24 10:53] LABS: Basophils # (A) 0.05 X 10*3/uL (0.00-0.10); Basophils % (A) 1.3 %; C Reactive Protein <0.30 mg/dL (0.00-0.80); Eosinophils # (A) 0.04 X 10*3/uL (0.04-0.35); HCT 40.3 % (37.2-46.3); HGB 13.1 g/dL (12.0-15.0); Immature Grans, Automated 0.5 %; Lymphocytes # (A) 1.01 X 10*3/uL (0.90-5.00); Lymphocytes % (A) 26.3 %; MCH 27.9 pg (27.0-32.0); MCHC 32.5 g/dL (32.0-37.0); MCV 85.9 fL (80.0-97.0); Mean Platelet Volume 11.4 fL (9.5-12.2); Monocytes # (A) 0.36 X 10*3/uL (0.20-1.00); Monocytes % (A) 9.4 %; NRBC Per 100 WBC 0 /100 WBCS (0.0-0.0); Neutrophils # (A) 2.36 X 10*3/uL (1.80-7.70); Neutrophils % (A) 61.5 %; Platelet Count 291 X 10*3/uL (140-440); RBC 4.69 X 10*6/uL (4.10-5.20); RDW 13.5 % (11.5-14.5); WBC 3.84 X 10*3/uL (4.50-10.00)
[2021-12-24 10:59] LABS: ALT 47 U/L (8-44); AST 29 U/L (13-35); African American GFR (CKD) 95.5 (60.0-200.0); Albumin 4.6 g/dL (3.8-4.9); Blood Urea Nitrogen 27.7 mg/dL (9.0-27.0); Non-African American GFR(CKD) 82.4 (60.0-200.0)
[2021-12-24 11:28] LABS: Erythrocyte Sedimentation Rate 3 mm/Hr (0-30)
== END | disposition home or self-care (01) ==
LOC: LABWHC1 07:41
PROVIDERS: ATTEND Internal Medicine Rheumatology
DX: M12.80 Other specific arthropathies, not elsewhere classified, unspecified site (principal)
CPT/HCPCS: 36415; 82040; 82565; 84450; 84460; 84520; 85025; 85652; 86140

== ENCOUNTER → 2022-09-15 | Outpatient (CLI) | payer MEDICAID ==
[2022-09-15 11:06] LABS: Basophils # (A) 0.04 X 10*3/uL (0.00-0.10); Basophils % (A) 0.9 %; Eosinophils # (A) 0 X 10*3/uL (0.04-0.35); Eosinophils % (A) 0 %; HCT 41.8 % (37.2-46.3); Immature Grans, Automated 0.2 %; Lymphocytes # (A) 1.08 X 10*3/uL (0.90-5.00); Lymphocytes % (A) 24.5 %; MCH 27.6 pg (27.0-32.0); MCHC 31.1 g/dL (32.0-37.0); MCV 88.7 fL (80.0-97.0); Mean Platelet Volume 11.2 fL (9.5-12.2); Monocytes # (A) 0.32 X 10*3/uL (0.20-1.00); Monocytes % (A) 7.3 %; NRBC Per 100 WBC 0 /100 WBCS (0.0-0.0); Neutrophils # (A) 2.95 X 10*3/uL (1.80-7.70); Neutrophils % (A) 67.1 %; Platelet Count 298 X 10*3/uL (140-440); RBC 4.71 X 10*6/uL (4.10-5.20); RDW 12.4 % (11.5-14.5)
[2022-09-15 11:14] LABS: C Reactive Protein <0.30 mg/dL (0.00-0.80)
[2022-09-15 11:24] LABS: ALT 37 U/L (8-44); AST 22 U/L (13-35); African American GFR (CKD) 99.2 (60.0-200.0); Albumin 4.7 g/dL (3.8-4.9); Blood Urea Nitrogen 22.9 mg/dL (9.0-27.0); Non-African American GFR(CKD) 85.6 (60.0-200.0)
[2022-09-15 11:27] LABS: Erythrocyte Sedimentation Rate 2 mm/Hr (0-30)
== END | disposition home or self-care (01) ==
LOC: LABWHC1 06:53
PROVIDERS: ATTEND Internal Medicine Rheumatology
DX: M06.4 Inflammatory polyarthropathy (principal)
CPT/HCPCS: 36415; 82040; 82565; 84450; 84460; 84520; 85025; 85652; 86140

== ENCOUNTER → 2022-11-14 | Outpatient (CLI) | payer OTHER ==
[2022-11-14 11:17] LABS: HCT 36.5 % (37.2-46.3); HGB 12.1 d/dL (12.0-15.0); MCH 28.7 pg (27.0-32.0); MCHC 33.2 d/dL (32.0-37.0); MCV 86.5 FL (80.0-97.0); Mean Platelet Volume 11.3 FL (9.5-12.2); NRBC Per 100 WBC 0 X 10*3/uL (0.00-0.01); Platelet Count 264 X 10*3/uL (140-440); RBC 4.22 X 10*6/uL (4.10-5.20); RDW 12.8 % (11.5-14.5); WBC 13.55 X 10*3/uL (4.50-10.00)
[2022-11-14 11:39] LABS: ALT 29 U/L (8-44); AST 23 U/L (13-35); Albumin 4.6 d/dL (3.8-4.9); Albumin/Globulin Ratio 2.09 Ratio (1.60-3.17); Alkaline Phosphatase 120 U/L (41-126); BUN/Creat Ratio 39.17 Ratio (12.00-20.00); Blood Urea Nitrogen 23.5 mg/dL (9.0-27.0); Calcium 9.9 mg/dL (8.7-10.3); Carbon Dioxide 24.5 mmol/L (21.6-31.8); Chloride 103 mmol/L (96-109); Chol/HDL Ratio 2.92 Ratio; Globulin 2.2 d/dL (1.6-3.3); Glucose 114 mg/dL (70-110); LDL Cholesterol,Calculated 111.1 mg/dL (0.0-131.0); Potassium 4.4 mmol/L (3.5-5.5); Sodium 138 mmol/L (135-145); Total Bilirubin 0.7 mg/dL (0.3-1.2); Total Protein 6.8 d/dL (6.2-8.2)
== END | disposition home or self-care (01) ==
LOC: LABWHC1 07:05
PROVIDERS: ATTEND Physician Assistant Medical
DX: I10 Essential (primary) hypertension (principal); E78.5 Hyperlipidemia, unspecified; E55.9 Vitamin D deficiency, unspecified; R53.83 Other fatigue
CPT/HCPCS: 36415; 80053; 80061; 82306; 84443; 85027

== ENCOUNTER → 2023-05-19 | Outpatient (CLI) | payer MEDICAID ==
[2023-05-19 10:57] LABS: HCT 38.5 % (37.2-46.3); HGB 12.4 g/dL (12.0-15.0); MCH 28.2 pg (27.0-32.0); MCHC 32.2 g/dL (32.0-37.0); MCV 87.7 FL (80.0-97.0); Mean Platelet Volume 11.1 FL (9.5-12.2); NRBC Per 100 WBC 0 X 10*3/uL (0.00-0.01); Platelet Count 293 X 10*3/uL (140-440); RBC 4.39 X 10*6/uL (4.10-5.20); WBC 5.02 X 10*3/uL (4.50-10.00)
[2023-05-19 11:10] LABS: ALT 118 U/L (8-44); AST 37 U/L (13-35); Albumin 4.5 g/dL (3.8-4.9); Albumin/Globulin Ratio 1.96 Ratio (1.60-3.17); Alkaline Phosphatase 205 U/L (41-126); BUN/Creat Ratio 39.86 Ratio (12.00-20.00); Blood Urea Nitrogen 27.9 mg/dL (9.0-27.0); Calcium 10.4 mg/dL (8.7-10.3); Carbon Dioxide 26.8 mmol/L (21.6-31.8); Chloride 103 mmol/L (96-109); Chol/HDL Ratio 3.47 Ratio; Globulin 2.3 g/dL (1.6-3.3); Glucose 106 mg/dL (70-110); LDL Cholesterol,Calculated 133.8 mg/dL (0.0-131.0); Potassium 5.8 mmol/L (3.5-5.5); Sodium 140 mmol/L (135-145); Total Bilirubin 0.4 mg/dL (0.3-1.2); Total Protein 6.8 g/dL (6.2-8.2)
== END | disposition home or self-care (01) ==
LOC: LABWHC1 06:52
PROVIDERS: ATTEND Family Medicine
DX: I10 Essential (primary) hypertension (principal); E78.5 Hyperlipidemia, unspecified
CPT/HCPCS: 36415; 80053; 80061; 85027

== ENCOUNTER → 2023-06-12 | Outpatient (CLI) | payer MEDICAID ==
--- NOTE | 2023-06-12 09:35 | US ---
EXAMINATION TYPE: US abdomen complete DATE OF EXAM: 06/12/2023 COMPARISON: NONE CLINICAL INDICATION: Female, 57 years old with history of R94.5 ABNORMAL RESULTS OF LIVER FUNCTION ST UDIES; Elevated liver enzymes TECHNIQUE: Multiple sonographic images of the abdomen are obtained. 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 Gallbladder: no evidence of stones Evidence for sonographic Jaimes's sign: no CBD: limited evaluation Spleen: appears wnl Right Kidney: no evidence of hydronephrosis, lower pole obscured by overlying bowel gas Left Kidney: no evidence of hydronephrosis Upper IVC: wnl Abd Aorta: visualized portions appear wnl The liver is homogenous with increased echotexture. The intrahepatic portion of the IVC and proximal abdominal aorta are within normal limits. There is no evidence of cholelithiasis. Common bile duct is unremarkable. The visualized portions of the pancreas are homogenous. The spleen is unremarkabl e. Kidneys are symmetric and free of hydronephrosis. No renal lesions are seen. IMPRESSION: 1. No acute abdominal process. 2. Hepatocellular disease commonly relating to hepatic steatosis.
[2023-06-12 11:49] LABS: Hepatitis A Antibody IgM Nonreactive; Hepatitis B Core IgM Nonreactive; Hepatitis B Surface Antigen Nonreactive; Hepatitis C IgG Antibody Nonreactive
[2023-06-12 11:51] LABS: ALT 42 U/L (8-44); AST 21 U/L (13-35); Albumin 4.3 g/dL (3.8-4.9); Albumin/Globulin Ratio 2.05 Ratio (1.60-3.17); Alkaline Phosphatase 160 U/L (41-126); Bilirubin, Conjugated <0.20 mg/dL (0.20-0.40); Bilirubin,Unconjugated >0.10 mg/dL (0.20-1.00); Globulin 2.1 g/dL (1.6-3.3); Total Bilirubin 0.3 mg/dL (0.3-1.2); Total Protein 6.4 g/dL (6.2-8.2)
== END | disposition home or self-care (01) ==
LOC: RADUSWWP 06:47
PROVIDERS: ATTEND Family Medicine
DX: K76.9 Liver disease, unspecified (principal); R94.5 Abnormal results of liver function studies
CPT/HCPCS: 76700; 80074; 80076

== ENCOUNTER → 2023-07-10 | Outpatient (CLI) | payer MEDICAID ==
[2023-07-10 10:45] LABS: HCT 35.5 % (37.2-46.3); HGB 11.6 g/dL (12.0-15.0); MCHC 32.7 g/dL (32.0-37.0); MCV 85.5 FL (80.0-97.0); NRBC Per 100 WBC 0 X 10*3/uL (0.00-0.01); Platelet Count 260 X 10*3/uL (140-440); RBC 4.15 X 10*6/uL (4.10-5.20); WBC 3.84 X 10*3/uL (4.50-10.00)
[2023-07-10 11:07] LABS: ALT 33 U/L (8-44); AST 20 U/L (13-35); Albumin 4.3 g/dL (3.8-4.9); Albumin/Globulin Ratio 2.15 Ratio (1.60-3.17); Alkaline Phosphatase 115 U/L (41-126); BUN/Creat Ratio 45.83 Ratio (12.00-20.00); Bilirubin, Conjugated <0.20 mg/dL (0.20-0.40); Bilirubin,Unconjugated >0.10 mg/dL (0.20-1.00); Blood Urea Nitrogen 27.5 mg/dL (9.0-27.0); Calcium 9.6 mg/dL (8.7-10.3); Carbon Dioxide 27.3 mmol/L (21.6-31.8); Chloride 106 mmol/L (96-109); Glucose 91 mg/dL (70-110); Potassium 4.6 mmol/L (3.5-5.5); Sodium 141 mmol/L (135-145); Total Bilirubin 0.3 mg/dL (0.3-1.2); Total Protein 6.3 g/dL (6.2-8.2)
== END | disposition home or self-care (01) ==
LOC: LABWHC1 06:51
PROVIDERS: ATTEND Family Medicine
DX: I10 Essential (primary) hypertension (principal); E78.5 Hyperlipidemia, unspecified; R73.01 Impaired fasting glucose; R79.89 Other specified abnormal findings of blood chemistry
CPT/HCPCS: 36415; 80048; 80076; 83036; 85027

== ENCOUNTER → 2023-10-09 | Outpatient (CLI) | payer MEDICAID ==
[2023-10-09 10:30] LABS: HCT 38.4 % (37.2-46.3); HGB 12.5 g/dL (12.0-15.0); MCH 27.7 pg (27.0-32.0); MCHC 32.6 g/dL (32.0-37.0); Mean Platelet Volume 11.2 FL (9.5-12.2); NRBC Per 100 WBC 0 X 10*3/uL (0.00-0.01); Platelet Count 268 X 10*3/uL (140-440); RBC 4.52 X 10*6/uL (4.10-5.20); RDW 12.7 % (11.5-14.5); WBC 3.71 X 10*3/uL (4.50-10.00)
[2023-10-09 10:49] LABS: ALT 35 U/L (8-44); AST 20 U/L (13-35); Albumin 4.6 g/dL (3.8-4.9); Albumin/Globulin Ratio 2.19 Ratio (1.60-3.17); Alkaline Phosphatase 131 U/L (41-126); BUN/Creat Ratio 35.71 Ratio (12.00-20.00); Calcium 9.7 mg/dL (8.7-10.3); Carbon Dioxide 26.7 mmol/L (21.6-31.8); Chloride 106 mmol/L (96-109); Chol/HDL Ratio 3.76 Ratio; Globulin 2.1 g/dL (1.6-3.3); Glucose 106 mg/dL (70-110); Sodium 142 mmol/L (135-145); T4, Free (Free Thyroxine) 1.35 ng/dL (0.80-1.80); Total Bilirubin 0.4 mg/dL (0.3-1.2); Total Protein 6.7 g/dL (6.2-8.2); VLDL Calculation 18.64 mg/dL (5.00-40.00)
== END | disposition home or self-care (01) ==
LOC: LABWHC1 07:00
PROVIDERS: ATTEND Family Medicine
DX: M06.4 Inflammatory polyarthropathy (principal); M12.80 Other specific arthropathies, not elsewhere classified, unspecified site; K76.0 Fatty (change of) liver, not elsewhere classified
CPT/HCPCS: 36415; 80053; 80061; 83525; 84439; 84481; 85027

== ENCOUNTER → 2024-08-22 | Outpatient (CLI) | payer BC, MEDICAID ==
--- NOTE | 2024-08-22 10:43 | MM ---
Reason for Exam: Screening (asymptomatic). Last mammogram was performed 3 year(s) and 1 month(s) ago. Patient History: Menarche at age 12. Patient has no children. Postmenopausal. Risk Values: Angela 5 year model risk: 1.5%. NCI Lifetime model risk: 8.3%. Prior Study Comparison: 04/26/2012 Bilateral Screening Mammogram, [facility]. 07/21/2019 Bilateral Screening Mammogram, [facility]. 08/08/2021 Bilateral Screening Mammogram, [facility]. Tissue Density: There are scattered areas of fibroglandular density. Findings: Analyzed By CAD. Unchanged bilateral areas of asymmetric density. There is no suspicious group of microcalcifications or new suspicious mass in either breast. Overall Assessment: Benign, BI-RAD 2 Management: Screening Mammogram of both breasts in 1 year. Patient should continue monthly self-breast exams. A clinical breast exam by your physician is recommended on an annual basis. This exam should not preclude additional follow-up of suspicious palpable abnormalities. Note on Angela scores and lifetime risk: 1. A Angela score greater than 3% is considered moderate risk. If this is the case, consider specialist referral to assess eligibility for a risk reducing agent. 2. If overall lifetime risk for the development of breast cancer is 20% or higher, the patient may qualify for future screening with alternating mammogram and breast MRI. [facility], , 08/22/2024 10:40 AM. Electronically signed and approved by: Rashard Escobedo M.D. Radiologist
== END | disposition home or self-care (01) ==
LOC: RADMAMWWP 08:28
PROVIDERS: ATTEND Family Medicine
DX: Z12.31 Encounter for screening mammogram for malignant neoplasm of breast (principal); R92.323 Mammographic fibroglandular density, bilateral breasts; Z78.0 Asymptomatic menopausal state
CPT/HCPCS: 77063; 77067